=== PATIENT | male | born 1965 | race Caucasian/White ===

== ENCOUNTER 2017-02-17 14:38 | Emergency (ER) | payer OTHER ==
[2017-02-17] MEDS ORDERED: HYDROmorphone 0.5 MG/0.5 ML Syringe IVPUSH ONE (15:07)
--- NOTE | 2017-02-17 15:56 | EDM.PDOC ---
ED HPI GENERAL MEDICAL PROBLEM - General Chief Complaint: Back Pain or Injury Stated Complaint: SNOWMOBILE ACCIDENT Time Seen by Provider: 02/17/17 14:55 Source of Information: Reports: Patient History Limitations: Reports: No Limitations - History of Present Illness INITIAL COMMENTS - FREE TEXT/NARRATIVE: 51-year-old [place] [employer] [place] and sustained a right chest wall and back injury. It didn't feel too bad at first, but he was out eating lunch afterwards, coughed or sneezed and felt a pop in his right flank area and now has intense pain. It hurts to breathe but he is not short of breath. Onset: Sudden Duration: Hour(s): (Within the last 2 hours) Severity: Moderate Associated Symptoms: Denies: Fever/Chills, Loss of Appetite, Nausea/Vomiting, Shortness of Breath Right Middle Back Pain Score (Numeric/FACES): 10 - Related Data Allergies Allergy/AdvReac Type Severity Reaction Status Date / Time acetaminophen [From Percocet] Allergy Rash Verified 02/17/17 14:55 amoxicillin Allergy Rash Verified 02/17/17 14:55 oxycodone Allergy Rash Verified 02/17/17 14:55 Home Meds: Home Meds . [Unable to Verify Home Med List] 02/17/17 [History] Past Medical History HEENT History: Reports: Other (See Below) Other HEENT History: fluid in l ear Cardiovascular History: Reports: High Cholesterol, Hypertension Gastrointestinal History: Reports: Other (See Below) Other Gastrointestinal History: hx of pancreatitis Genitourinary History: Reports: Renal Calculus, Other (See Below) Other Genitourinary History: past renal failure Other Musculoskeletal History: fx rib - Infectious Disease History Infectious Disease History: Reports: C-Difficile - Past Surgical History GI Surgical History: Reports: Cholecystectomy Social & Family History - Tobacco Use Smoking Status *Q: Current Every Day Smoker Years of Tobacco use: 35 Packs/Tins Daily: 1 Used Tobacco, but Quit: No Second Hand Smoke Exposure: Yes - Caffeine Use Caffeine Use: Reports: Coffee, Energy Drinks - Recreational Drug Use Recreational Drug Use: No ED ROS GENERAL - Review of Systems Review Of Systems: See Below Constitutional: Denies: Fever, Chills Respiratory: Reports: Pleuritic Chest Pain Cardiovascular: Reports: Chest Pain GI/Abdominal: Denies: Abdominal Pain, Nausea, Vomiting : Reports: Flank Pain Skin: Reports: No Symptoms Neurological: Reports: No Symptoms Psychiatric: Reports: No Symptoms ED EXAM, UPPER BACK/NECK PAIN - Physical Exam Exam: See Below Exam Limited By: No Limitations General Appearance: Alert, Moderate Distress Head Exam: Atraumatic Neck Exam: Non-Tender Cardiovascular/Respiratory: Regular Rate, Rhythm, Normal Breath Sounds, Other ( Chest is exquisitely tender to palpation over the right flank area laterally) GI/Abdominal: Tender (Some tenderness with palpation across the upper abdomen) Extremities: Normal Inspection Neurologic: No Motor/Sensory Deficits Psychiatric: Normal Affect, Normal Mood Skin Exam: Normal Color, Warm/Dry (No bruising over injured area) Course - Vital Signs Last Recorded V/S: Last Vital Signs Temp 96.3 F 02/17/17 17:31 Pulse 84 02/17/17 17:31 Resp 20 02/17/17 17:31 BP 146/88 H 02/17/17 17:31 Pulse Ox 97 02/17/17 17:31 - Orders/Labs/Meds Orders: Active Orders 24 hr Category Date Time Status Chest Abdomen Pelvis wo Cont [CT] Stat Exams 02/17/17 15:57 Taken Labs: Laboratory Tests 02/17/17 02/17/17 Range/Units 15:21 15:21 WBC 10.6 (4.5-11.0) K/uL RBC 4.86 (4.30-5.90) M/uL Hgb 14.5 (12.0-15.0) g/dL Hct 40.6 (40.0-54.0) % MCV 84 (80-98) fL MCH 30 (27-31) pg MCHC 36 (32-36) % Plt Count 222 (150-400) K/uL Neut % (Auto) 63 (36-66) % Lymph % (Auto) 26 (24-44) % Mellette % (Auto) 8 H (2-6) % Eos % (Auto) 3 (2-4) % Baso % (Auto) 0 (0-1) % Sodium 138 L (140-148) mmol/L Potassium 4.2 (3.6-5.2) mmol/L Chloride 103 (100-108) mmol/L Carbon Dioxide 24 (21-32) mmol/L Anion Gap 15.2 H (5.0-14.0) mmol/L BUN 27 H (7-18) mg/dL Creatinine 1.7 H (0.8-1.3) mg/dL Est Cr Clr Drug Dosing 55.16 mL/min Estimated GFR (MDRD) 42 L (>60) Glucose 133 H (74-106) mg/dL Calcium 8.6 (8.5-10.1) mg/dL Meds: Medications Discontinued Medications Generic Name Dose Route Start Last Admin Trade Name Vaishnavi PRN Reason Stop Dose Admin Hydromorphone HCl 0.5 mg 02/17/17 15:07 02/17/17 15:15 Dilaudid IVPUSH 02/17/17 15:08 0.5 mg ONETIME ONE Administration Hydromorphone HCl 1 mg 02/17/17 16:30 02/17/17 16:39 Dilaudid IVPUSH 02/17/17 16:31 1 mg ONETIME ONE Administration - Re-Assessments/Exams Free Text/Narrative Re-Assessment/Exam: 02/17/17 15:55 Patient was given 1 mg of Dilaudid IV for pain control, CBC and BMP were obtained with the intention of an IV enhanced contrast CT scan of the chest and abdomen. However creatinine returned 1.7 and GFR was only 42, so the scan was done without contrast. 02/17/17 17:13 CT confirmed an isolated right-sided slightly displaced 10th rib fracture. No other significant acute findings. Patient was given an additional 1 mg of Dilaudid IV, and discharged with 10 hydrocodone for extra pain control over the next 48 hours and he can be rechecked went home in 2-4 days if not improving satisfactorily. A copy of the CT scan was given to the patient. Departure - Departure Time of Disposition: 17:40 Disposition: Home, Self-Care 01 Condition: Fair Clinical Impression: Closed rib fracture Qualifiers: Encounter type: initial encounter Rib fracture type: single rib Laterality: right Qualified Code(s): S22.31XA - Fracture of one rib, right side, initial encounter for closed fracture - Discharge Information Instructions: Rib Fracture, [id number] Referrals: PCP,None [Primary Care Provider] - Forms: ED Department Discharge Care Plan Goals: Increase activity as tolerated. A regular dose of ibuprofen or naproxen will help with pain, adding stronger pain medication if needed as directed. Recheck in 2-4 days if not improving satisfactorily. - My Orders Last 24 Hours: My Active Orders 02/17/17 15:57 Chest Abdomen Pelvis wo Cont [CT] Stat - Assessment/Plan Last 24 Hours: My Active Orders 02/17/17 15:57 Chest Abdomen Pelvis wo Cont [CT] Stat
[2017-02-17] MEDS ORDERED: HYDROmorphone 1 MG/ML Syringe IVPUSH ONE (16:30)
== END 2017-02-17 17:30 | disposition home or self-care (01) ==
LOC: EDBD 14:38 → JP.ED 14:38
DX: S22.31XA Fracture of one rib, right side, initial encounter for closed fracture (principal); E78.00 Pure hypercholesterolemia, unspecified; I10 Essential (primary) hypertension; F17.210 Nicotine dependence, cigarettes, uncomplicated; V86.52XA Driver of snowmobile injured in nontraffic accident, initial encounter; Z88.1 Allergy status to other antibiotic agents; Z88.8 Allergy status to other drugs, medicaments and biological substances
CPT/HCPCS: 36415; 71250; 74176; 80048; 85025; 96374; 96376; 99284; J1170